=== PATIENT | female | born 1995 | race Two or more races ===

== ENCOUNTER 2023-05-17 20:43 | Emergency (ER) | payer OTHER ==
[~2023-05-17] VITALS: Ht 157.5 cm; Wt 81.6 kg
[2023-05-17] MEDS ORDERED: LOSARTAN-HCTZ1 EAC1 PO (20:59)
[2023-05-17] MEDS ORDERED: FLOLIPID40 MG/5 ML PO (20:59)
== END 2023-05-17 22:53 | disposition home or self-care (01) ==
LOC: ER 20:44
DX: R05.9 Cough, unspecified (principal); Z20.822 Contact with and (suspected) exposure to COVID-19; Z88.1 Allergy status to other antibiotic agents; Z91.013 Allergy to seafood; Z91.040 Latex allergy status; Z91.041 Radiographic dye allergy status